=== PATIENT | female | born 1980 | race Caucasian/White ===

== ENCOUNTER 2018-02-22 16:14 | Emergency (ER) | payer MEDICAID ==
[~2018-02-22] VITALS: Ht 160 cm; Wt 63.0 kg
[2018-02-22 16:24] VITALS: BP 135/93
[2018-02-22 17:02] LABS: BASOPHILS % 0.4 % (0.0-2.0); EOSINOPHILS % 1.4 % (0.0-5.0); HEMATOCRIT. 41.6 % (36.0-48.0); HEMOGLOBIN. 14.3 g/dL (12.0-16.0); LYMPHOCYTES % 24.9 % (20.0-50.0); MEAN CORPUSCULAR HEMOGLOBIN 29.9 pg (28.0-32.0); MEAN CORPUSCULAR VOLUME 87.1 fL (81.0-99.0); MEAN PLATELET VOLUME 8.4 fl (7.4-10.4); MONOCYTES % 5.8 % (2.0-8.0); NEUTROPHILS % 67.5 % (40.0-76.0); PLATELET 396 x1000/uL (130-400); RED BLOOD CELL COUNT 4.78 mill/uL (4.2-5.4); RED CELL DISTRIBUTION WIDTH 13.2 % (11.6-14.6)
[2018-02-22 17:06] LABS: CHLORIDE 103 mEq/L (98-107)
== END 2018-02-23 01:24 | disposition left against medical advice (07) ==
LOC: ER 17:05
DX: T17.228A Food in pharynx causing other injury, initial encounter (principal); R09.89 Other specified symptoms and signs involving the circulatory and respiratory systems; R55 Syncope and collapse; Y93.89 Activity, other specified; Y92.511 Restaurant or cafe as the place of occurrence of the external cause
CPT/HCPCS: 36415; 80053; 83690; 84484; 85025; 85610; 85730; 99284

== ENCOUNTER 2020-04-13 16:15 | Emergency (ER) | payer MEDICAID, OTHER ==
[~2020-04-13] VITALS: Ht 162.6 cm; Wt 71.0 kg
[2020-04-13 16:22] VITALS: BP 144/85
[2020-04-13] MEDS ORDERED: ACETAMINOPHEN 325MG TABLET PO ONE (16:45)
== END 2020-04-13 18:19 | disposition home or self-care (01) ==
LOC: ER 16:15
DX: J02.9 Acute pharyngitis, unspecified (principal); R03.0 Elevated blood-pressure reading, without diagnosis of hypertension; E11.9 Type 2 diabetes mellitus without complications
CPT/HCPCS: 87070; 87430; 99283

== ENCOUNTER 2020-05-11 19:35 | Emergency (ER) | payer OTHER ==
[~2020-05-11] VITALS: Ht 162.6 cm; Wt 71.8 kg
[2020-05-11 20:14] VITALS: BP 197/116
[2020-05-11] MEDS ORDERED: MAGNESIUM/ALUMINUM HYDROXIDE/SIMETHICONE 30ML UDC PO ONE (21:15)
[2020-05-11] MEDS ORDERED: ASPIRIN 81MG TABLET PO ONE (21:15)
[2020-05-11] MEDS ORDERED: VISCOUS LIDOCAINE 2% 15 ML UDC PO ONE (21:15)
[2020-05-11 21:28] LABS: BASOPHILS % 0.4 % (0.0-2.0); EOSINOPHILS % 1.7 % (0.0-5.0); HEMATOCRIT. 40.6 % (36.0-48.0); HEMOGLOBIN. 14.2 g/dL (12.0-16.0); LYMPHOCYTES % 31.1 % (20.0-50.0); MEAN CORPUSCULAR VOLUME 88.8 fL (81.0-99.0); MEAN PLATELET VOLUME 8.2 fl (7.4-10.4); MONOCYTES % 5.6 % (2.0-8.0); NEUTROPHILS % 61.2 % (40.0-76.0); PLATELET 393 x1000/uL (130-400); RED BLOOD CELL COUNT 4.57 mill/uL (4.2-5.4); RED CELL DISTRIBUTION WIDTH 13.2 % (11.6-14.6)
[2020-05-11 21:36] LABS: CHLORIDE 101 mEq/L (98-107)
== END 2020-05-11 23:15 | disposition home or self-care (01) ==
LOC: ER 19:35
DX: R07.89 Other chest pain (principal); J02.9 Acute pharyngitis, unspecified; E11.9 Type 2 diabetes mellitus without complications
CPT/HCPCS: 36415; 71045; 80053; 81025; 83880; 84484; 85025; 93005; 99285